=== PATIENT | male | born 1995 | race African-American/Black ===

== ENCOUNTER 2018-06-08 09:43 | Emergency (ER) | payer OTHER, SELFPAY | END 2018-06-08 11:16 | disposition home or self-care (01) | LOC: ERS 09:43 | DX: R04.0 Epistaxis (principal) | CPT/HCPCS: 99283 ==

== ENCOUNTER 2018-07-27 19:17 | Emergency (ER) | payer SELFPAY ==
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
== END 2018-07-27 21:04 | disposition home or self-care (01) ==
LOC: ERS 19:17
DX: F41.9 Anxiety disorder, unspecified (principal); I25.2 Old myocardial infarction; F17.290 Nicotine dependence, other tobacco product, uncomplicated
CPT/HCPCS: 71046; 93005

== ENCOUNTER 2018-09-21 01:23 | Emergency (ER) | payer SELFPAY ==
[2018-09-21] MEDS ORDERED: Ketorolac Tromethamine 30 MG/ML VIAL ONE (02:10)
[2018-09-21] MEDS ORDERED: hydrOXYzine 25 MG TAB ONE ×2 (02:10→02:11)
[2018-09-21] MEDS ORDERED: Tenecteplase 50 MG - STEMI KIT ONE (02:10)
== END 2018-09-21 02:25 | disposition home or self-care (01) ==
LOC: ERS 01:23
DX: K02.9 Dental caries, unspecified (principal); F41.9 Anxiety disorder, unspecified; I25.2 Old myocardial infarction
CPT/HCPCS: 96372; 99284; J1885; J3101

== ENCOUNTER 2018-10-16 18:18 | Emergency (ER) | payer SELFPAY ==
[2018-10-16] MEDS ORDERED: Fluorescein Opthalmic Strip ONE (18:36)
[2018-10-16] MEDS ORDERED: Proparacaine 0.5% Opth 15 ML BOT ONE (18:37)
[2018-10-16] MEDS ORDERED: Adacel (T-DAP) 0.5 ML SYRINGE ONE (18:37)
== END 2018-10-16 19:15 | disposition home or self-care (01) ==
LOC: ERS 18:18
DX: H10.9 Unspecified conjunctivitis (principal); I25.2 Old myocardial infarction; F41.9 Anxiety disorder, unspecified
CPT/HCPCS: 90471; 90715

== ENCOUNTER 2018-11-15 14:02 | Emergency (ER) | payer SELFPAY | END 2018-11-15 14:35 | disposition home or self-care (01) | LOC: ERS 14:02 | DX: B86 Scabies (principal); I25.2 Old myocardial infarction; F41.9 Anxiety disorder, unspecified | CPT/HCPCS: 99282 ==

== ENCOUNTER 2019-02-09 00:05 | Emergency (ER) | payer SELFPAY ==
[2019-02-09 01:40] LABS: #Basophils 0.1 thou/uL (0.0-0.2); #Eosinphils 0.3 thou/uL (0.0-0.7); #Lymphocytes 3.1 thou/uL (1.20-3.40); #Monocytes 0.6 thou/uL (0.11-0.59); #Neutrophils 3.1 thou/uL (1.40-6.50); %Basophils 0.8 % (0.0-1.0); %Eosinophils 4.8 % (0.0-10.0); %Lymphocytes 42.7 % (21.0-51.0); %Monocytes 8.9 % (0.0-10.0); %Neutrophils 42.7 % (42.0-75.0); Hemoglobin 14.5 g/dL (14.0-18.0); Mean Corpuscular HGB CONC 33.1 g/dL (32.0-36.0); Mean Corpuscular Hemoglobin 28.4 pg (27.0-31.0); Mean Corpuscular Volume 85.9 fL (78.0-98.0); Mean Platelet Volume 7.4 fL (7.4-10.4); Platelet Count 211 thou/uL (130-400); RBC Distribution Width 12.5 % (11.5-14.5); Red Blood Cell (RBC) Count 5.11 mill/uL (4.70-6.10); White Blood Cell (WBC) Count 7.1 thou/uL (4.8-10.8)
[2019-02-09 02:04] LABS: ALT (SGPT) 13 U/L (8-55); AST (SGOT) 22 U/L (5-34); Alkaline Phosphatase 53 U/L (40-110); Anion Gap 13 mmol/L (10-20); BUN (Urea Nitrogen) 12 mg/dL (8.9-20.6); Bilirubin, Total 0.3 mg/dL (0.2-1.2); Calc. Creatinine Clearance 0 mL/min (70-130); Carbon Dioxide 26 mmol/L (22-29); Chloride 105 mmol/L (98-107); Estimated GFR-MDRD Greater than 90; Globulin 2.4 g/dL (2.4-3.5); Glucose 87 mg/dL (70-105); Potassium 3.9 mmol/L (3.5-5.1); Protein, Total 6.4 g/dL (6.0-8.3); Sodium 140 mmol/L (136-145)
--- NOTE | 2019-02-09 07:41 | CT ---
PRELIMINARY REPORT/[facility]/EMERGENCY AFTER HOURS PROCEDURE EXAM: CT Neck with Intravenous Contrast. CLINICAL HISTORY: ER 13... M23 presents to ED for skin complaint, bump located under chin. Reports he first noticed bum p yesterday, painful TECHNIQUE: Axial computed tomography images of the neck with intravenous contrast. Sagittal and coronal reformat ions performed. CONTRAST: With; ISOVUE 370, 90 ML COMPARISON: None provided. FINDINGS: PHARYNX: Pharyngeal tonsils are slightly enlarged. No parapharyngeal or retropharyngeal soft tissue t hickening or swelling. No abscess. In the floor the mouth at the root of the tongue, there is a ovoid soft tissue mass above the mylohyo id muscle interposed between the geniohyoid muscles measuring 18 x 16 x 16 mm with soft tissue density. (60 HU). This lesion does not approach the density of thyroid tissue. LARYNX: The larynx is unremarkable. Normal epiglottis. RETROPHARYNGEAL SPACE: No retropharyngeal soft tissue swelling or gas. SALIVARY GLANDS: The parotid, submandibular, and sublingual glands are unremarkable. LYMPH NODES: No lymphadenopathy. THYROID: The thyroid gland is unremarkable. No nodule. BONES: No acute osseous abnormality. IMPRESSION: Nonspecific soft tissue mass in the sublingual space interposed between the geniohyoid muscles above the level of the mylohyoid muscle, likely benign. This lesion does not have cystic features, nor does it approach the density of thyroid tissue. Recommend further characterization with contrast-enh anced MRI of the neck. Consultation with otolaryngology may be helpful. Ultimately, direct tissue sampling may be required. ELECTRONICALLY SIGNED BY: Jarad Webb D.O. Feb 09, 2019 2:17:26 AM STOCK DRIVER This report is intended for review by the ordering physician only, in accordance of law. If you recei ve this report in error, please call [facility] at [phone]. FINAL REPORT NECK CT WITH IV CONTRAST: DATE: 02/09/2019 HISTORY: Painful skin abnormality in the submandibular region. FINDINGS: I agree with the preliminary report. Partially imaged brain parenchyma grossly unremarkable. The retr oantral fat and parapharyngeal fat is clear bilaterally. The parotid and the submandibular glands appear grossly unremarkable. The imaged lung apices appear unremarkable. The vascular structures appear patent. Thyroid gland, thyroid cartilage, cricoid cartilage, hyoid bone, epiglottis and preepiglottic fat, an d tonsillar pillars appear unremarkable. There is soft tissue swelling with skin thickening and induration of the subcutaneous fat in the subm andibular region. There is a soft tissue mass posterior to the midline mandible measuring 1.4 x 2.3 x 2.0 cm interposed between the mylohyoid muscle and the geniohyoid muscles demonstrating a midline l ocation with soft tissue attenuation. The osseous structures demonstrate no acute findings. IMPRESSION: Skin thickening and subcutaneous fat stranding in the submandibular region suggesting inf lammatory change. Soft tissue mass interposed between the mylohyoid and geniohyoid muscles, nonspecific. This may represent an enlarged reactive lymph node. Clinical correlation is essential. I f this abnormality does not resolve following treatment, MRI advised for further assessment. Code QA Transcribed Date/Time: 02/09/2019 7:49 AM
[2019-02-09] MEDS ORDERED: Iopamidol 370 76% 100 ML VIAL ONE (13:32)
== END 2019-02-09 02:36 | disposition home or self-care (01) ==
LOC: ERS 00:05
DX: K11.8 Other diseases of salivary glands (principal); F41.9 Anxiety disorder, unspecified
CPT/HCPCS: 70491; 80053; 85025; Q9967

== ENCOUNTER 2019-08-13 14:23 | Emergency (ER) | payer OTHER, SELFPAY ==
--- NOTE | 2019-08-13 16:02 | RAD ---
XR Knee Rt 4 View STANDARD History: Injury Comparison: Radiograph May 2019 Findings: No acute fracture or malalignment. Curvilinear calcification along the posterior fibular ne ck periosteum is similar. Moderate joint effusion. Impression: Moderate joint effusion without acute fracture or malalignment. Nonemergent MRI may be be neficial to evaluate for internal derangement if clinically warranted.
== END 2019-08-13 16:09 ==
LOC: ERS 14:23
DX: S83.401A Sprain of unspecified collateral ligament of right knee, initial encounter (principal); S00.211A Abrasion of right eyelid and periocular area, initial encounter; S00.81XA Abrasion of other part of head, initial encounter; X58.XXXA Exposure to other specified factors, initial encounter